=== PATIENT | female | born 1985 | race Caucasian/White ===

== ENCOUNTER 2018-01-17 15:18 | Emergency (ER) | payer BC ==
[~2018-01-17] VITALS: Ht 162.6 cm; Wt 71.8 kg
[~2018-01-17 15:18] MED LIST: IBU800 M1 PO; PERCOCET 325 MG1 TA2 PO; PRENATAL MVI
[2018-01-17 15:21] VITALS: TEMP 97
[2018-01-17 15:53] LABS: BASO % 0.2 % (0.0-2.0); EOS # 0.1 (0.0-0.7); EOS % 0.6 % (0-4.0); GRAN # 7.7 (1.4-6.5); GRAN % 79.5 % (42.2-75.2); HEMATOCRIT 40.9 % (37.0-47.0); HEMOGLOBIN 13.9 g/dl (12.5-16.0); LYMPH # 1.3 (1.2-3.4); LYMPH % 13.5 % (20.0-51.0); MEAN CELL VOLUME 85 fl (80.0-100.0); MEAN CORPUSCULAR HEMOGLOBIN 29 pg (27.0-31.0); MEAN CORPUSCULAR HGB CONC 34 g/dl (33.0-37.0); MEAN PLATELET VOLUME 10.9 fl (7.4-10.4); MONO # 0.5 (0.1-0.6); MONO % 5.6 % (1.7-9.3); PLATELET COUNT 244 K/mm3 (130-400); RED BLOOD COUNT 4.81 M/mm3 (4.10-5.30); REDCELL DISTRIBUTION WIDTH-CV 14.4 % (11.5-14.5)
[2018-01-17 16:03] LABS: ALBUMIN 3.9 gm/dL (3.5-5.0); BILIRUBIN,TOTAL 0.5 mg/dL (0.0-1.0); C-REACTIVE PROTEIN 3.5 mg/dL (0.0-0.9); CALCIUM 9.1 mg/dL (8.4-10.2); CREATININE, serum 0.53 mg/dL (0.52-1.25); POTASSIUM 3.4 mmol/L (3.4-5.0); TOTAL PROTEIN 7.3 gm/dL (6.4-8.2)
[2018-01-17 16:45] LABS: COLLECTION METHOD CLEAN CATCH
[2018-01-17 16:58] LABS: MUCOUS Present /lpf; PH 5 (5-8); URINE APPEARANCE Cloudy; URINE BACTERIA Rare /hpf; URINE COLOR Straw; URINE GLUCOSE Negative (NEGATIVE); URINE PROTEIN(semi-quant) 1+ (NEGATIVE)
[2018-01-17 16:59] LABS: URINE BILIRUBIN Negative (NEGATIVE); URINE BLOOD Negative (NEGATIVE); URINE KETONE 2+ (NEGATIVE); URINE NITRATE Negative (NEGATIVE); URINE UROBILINOGEN Negative (NEGATIVE)
[2018-01-17 17:01] LABS: URINE LEUKOCYTE ESTERASE Trace (NEGATIVE)
[2018-01-17] MEDS ORDERED: PHENERGAN 25 TA25 MG PO (17:07)
[2018-01-17] MEDS ORDERED: ZITHROMAX Z PA250 MG PO (17:07)
[2018-01-17 19:24] VITALS: BP 117/69; PULSE 75
== END 2018-01-17 19:30 | disposition home or self-care (01) ==
LOC: COL.ER 15:18
PROVIDERS: Family Medicine
DX: O99.512 Diseases of the respiratory system complicating pregnancy, second trimester (principal); J20.9 Acute bronchitis, unspecified; O99.282 Endocrine, nutritional and metabolic diseases complicating pregnancy, second trimester; E86.0 Dehydration; O21.9 Vomiting of pregnancy, unspecified; Z3A.20 20 weeks gestation of pregnancy
CPT/HCPCS: J2550; J7030

== ENCOUNTER 2018-06-02 02:20 | Inpatient (IN) | payer BC ==
[~2018-06-02] VITALS: Ht 162.6 cm; Wt 85.9 kg
[2018-06-02] VITALS (14 sets, daily range): BP systolic 101–124; BP diastolic 56–77; PULSE 71–118; TEMP 98.1–98.7
[~2018-06-02 02:20] MED LIST changes: +PHENERGAN 25 TA25 MG PO; +ZITHROMAX Z PA250 MG PO
[2018-06-02] MEDS ORDERED: ZANTAC 7575 MG PO (02:57)
[2018-06-02 03:03] LABS: BASO % 0.2 % (0.0-2.0); EOS % 0.3 % (0-4.0); GRAN # 8.1 (1.4-6.5); GRAN % 67.2 % (42.2-75.2); HEMATOCRIT 37.8 % (37.0-47.0); LYMPH # 3.2 (1.2-3.4); LYMPH % 26.1 % (20.0-51.0); MEAN CELL VOLUME 82 fl (80.0-100.0); MEAN CORPUSCULAR HEMOGLOBIN 28 pg (27.0-31.0); MEAN CORPUSCULAR HGB CONC 34 g/dl (33.0-37.0); MEAN PLATELET VOLUME 11.3 fl (7.4-10.4); MONO # 0.7 (0.1-0.6); MONO % 5.6 % (1.7-9.3); PLATELET COUNT 218 K/mm3 (130-400); REDCELL DISTRIBUTION WIDTH-CV 14.6 % (11.5-14.5)
[2018-06-03 06:53] VITALS: BP 112/62; PULSE 68; TEMP 98.1
[2018-06-03] MEDS ORDERED: PERCOCET 325 MG1 TA2 PO (11:04)
[2018-06-03] MEDS ORDERED: MOTRIN 600600 MG/TAB PO (11:04)
== END 2018-06-03 11:38 | disposition home or self-care (01) | DRG 775 ==
LOC: LDRO 02:20 → LDR 02:46 → OB 06:41
PROVIDERS: Obstetrics & Gynecology
PROC: 10E0XZZ Delivery of Products of Conception, External Approach (ICD-10-PCS; principal; 2018-06-02)
PROC: 0KQM0ZZ Repair Perineum Muscle, Open Approach (ICD-10-PCS; 2018-06-02)
DX: O70.1 Second degree perineal laceration during delivery (principal); Z37.0 Single live birth; Z3A.39 39 weeks gestation of pregnancy
CPT/HCPCS: J2590; J2795; J7120